=== PATIENT | female | born 1990 | race Caucasian/White ===

== ENCOUNTER 2016-07-18 21:31 | Emergency (ER) | payer SELFPAY ==
[~2016-07-18] VITALS: Ht 154.9 cm; Wt 54.3 kg
[2016-07-18 23:26] LABS: HEMOGLOBIN 13.7 g/dL (11.7-16.4)
[2016-07-18 23:37] LABS: BLOOD UREA NITROGEN 15 mg/dL (7-18)
[2016-07-19] MEDS ORDERED: KETOROLAC 30 MG/1 ML IM PRN
[2016-07-19 00:12] VITALS: BP 115/71
[2016-07-19] MEDS ORDERED: KETOROLAC 30 MG/1 ML ONE (00:16)
== END 2016-07-19 00:32 | disposition home or self-care (01) ==
LOC: ED 23:59
DX: R07.1 Chest pain on breathing (principal)
CPT/HCPCS: 36415; 71010; 80048; 82040; 84484; 84703; 85025; 85379; 93005; 96372; 99285; J1885